=== PATIENT | male | born 1940 | race Caucasian/White ===

== ENCOUNTER 2016-10-02 16:58 | Emergency (ER) | payer MEDICARE, MEDICAID ==
[2016-10-02 17:04] VITALS: BMI 23.6
--- NOTE | 2016-10-02 17:29 | ED PDOC ---
Arrival/HPI - General Chief Complaint: Cardiac Arrest Time Seen by Provider: 10/02/16 17:25 Historian: Patient EM Caveat: Acuity of Condition - History of Present Illness Narrative History of Present Illness (Text): 10/02/16 16:56 A 76 year old male brought into the emergency department via EMS in cardiac arrest. EMS states they were told the patient fell down onto the ground. On arrival to the scene the patient had not pulse and CPR was started. HPI and ROS limited due to acuity of patient's condition. Past Medical History - Provider Review Nursing Documentation Reviewed: Yes - Psychiatric Hx Substance Use: No Family/Social History - Physician Review Nursing Documentation Reviewed: Yes Family/Social History: Unknown Family HX Smoking Status: Unknown If Ever Smoked Hx Alcohol Use: No Hx Substance Use: No Allergies/Home Meds Allergies/Adverse Reactions: Allergies Unobtainable Allergy (Verified 10/02/16 17:04) Home Medications: Home Meds Medication Instructions Recorded Confirmed Unobtainable 10/02/16 10/02/16 Review of Systems - Review of Systems Systems not reviewed;Unavailable: Acuity of Condition Physical Exam - Physical Exam Physical Exam Limitations: Clinical Condition Vital Signs Reviewed: Yes Vital Signs Temp 10/02/16 17:00 99.8 F H Temperature: Afebrile Blood Pressure: Normal Pulse: Pulseless Respiratory Rate: Normal Appearance: Positive for: Well-Appearing, Non-Toxic, Comfortable Pain Distress: None Mental Status: No: Alert and Oriented X 3 - Systems Exam Head: Present: Normocephalic, Abrasion (occiput, no active bleeding, superficial ) Pupils: Present: Non-Reactive Conjunctiva: Present: Normal Ears: Present: Other (no conway signs) Mouth: Present: Dry Pharnyx: Present: Normal. No: ERYTHEMA, EXUDATE Neck: Present: Trachea Midline Respiratory/Chest: Present: Other (no spontaneous breaths. equal chest rise and fall after intubation) Cardiovascular: Present: Other (no pulses). No: Peripheal Pulses Present Abdomen: No: Distention Back: Present: Normal Inspection Upper Extremity: No: Cyanosis, Edema Lower Extremity: No: Edema, Cyanosis Skin: Present: Warm, Dry, Normal Color. No: Rashes Medical Decision Making ED Course and Treatment: Impression: A 76 year old male brought into the emergency department via EMS in cardiac arrest. Per EMS, he had CPR for 10min in the field Patient was seen immediately on arrival of the patient and CPR was continued. meds per nursing sheet PROCEDURE: INTUBATION Performed by the emergency provider, Respiratory therapist at beside. Consent: Discussion of the risks, benefits, and alternatives to the procedure, along with informed consent was precluded by the urgency of the procedure and the patient condition. Timeout: A timeout to verify the correct patient, procedure, and site was performed. Indication: Cardiac arrest Pre-oxygenation: [id number] Medications: No medications given. ETT Size: 7.5 Confirmation: Cords directly visualized as tube passed, good bilateral breath sounds, positive CO2 detector color change, tube fogging, adequate chest rise, improving pulse oximetry reading, improved skin color, and absence of gastric sounds,. ETT Secured: The cuff was inflated and the tube was secured appropriately at a distance of 23 cm at the lip. Post-Procedure: There were no immediate complications. Patient's son arrived at the emergency department and was updated on status of patient. No cardiac activity on ultrasound. No palpable pulses. No gag reflex. Time of 1717. See nursing documentation for further details. pt's family bedside, have been informed of events in the ER all questions answered - Critical Care Critical Care Minutes: 30 minutes - Scribe Statement The provider has reviewed the documentation as recorded by the Scribe [place] Provider Scribe Attestation: All medical record entries made by the Scribe were at my direction and personally dictated by me. I have reviewed the chart and agree that the record accurately reflects my personal performance of the history, physical exam, medical decision making, and the department course for this patient. I have also personally directed, reviewed, and agree with the discharge instructions and disposition. Disposition/Present on Arrival - Present on Arrival Any Indicators Present on Arrival: No History of DVT/PE: No History of Uncontrolled Diabetes: No Urinary Catheter: No History of Decub. Ulcer: No History Surgical Site Infection Following: None - Disposition Have Diagnosis and Disposition been Completed?: Yes Diagnosis: Cardiac arrest Disposition Time: 17:17 Condition: Referrals: Karlene Pace, [Primary Care Provider] - Follow up with primary
[2016-10-02 18:23] VITALS: TEMP 99.8
== END 2016-10-02 21:23 ==
LOC: EDBD → MERGE 16:58 → ED 16:58
DX: I46.9 Cardiac arrest, cause unspecified (principal)